=== PATIENT | male | born 1955 ===

== ENCOUNTER 2024-09-28 17:32 | Emergency (ER) | payer MEDICARE ==
[~2024-09-28] VITALS: Ht 177.8 cm; Wt 63.5 kg
[2024-09-28 18:51] LABS: BASOPHILS ABSOLUTE AUTO 0.05 K/mm3 (0.00-0.23); BASOPHILS PERCENT AUTO 1 % (0-2); EOSINOPHILS ABSOLUTE AUTO 0.19 K/mm3 (0.00-0.68); EOSINOPHILS PERCENT AUTO 2 % (0-6); Hematocrit 40.2 % (37.0-53.0); Hemoglobin 13.8 g/dL (13.5-17.5); IMMATURE GRAN ABSOLUTE AUTO 0.04 K/mm3 (0.00-0.10); IMMATURE GRAN PERCENT AUTO 1 % (0-1); LYMPHOCYTES ABSOLUTE AUTO 1.17 K/mm3 (0.84-5.20); LYMPHOCYTES PERCENT AUTO 15 % (21-46); MONOCYTES ABSOLUTE AUTO 0.59 K/mm3 (0.16-1.47); MONOCYTES PERCENT AUTO 7 % (4-13); Mean Corpuscular HGB 27.3 pg (26.0-34.0); Mean Corpuscular HGB Conc 34.3 g/dL (31.5-36.5); Mean Corpuscular Volume 80 fL (80-100); Mean Platelet Volume 9.9 fL (9.1-12.4); NEUTROPHILS ABSOLUTE AUTO 5.94 K/mm3 (1.96-9.15); NEUTROPHILS PERCENT AUTO 74 % (41-73); Platelet Count 82 K/mm3 (150-400); RDW Coefficient Variation 15.6 % (11.7-14.2); RDW Standard Deviation 44.7 fL (35.1-46.3); Red Blood Cell Count 5.05 M/mm3 (4.30-5.90); White Blood Cell Count 7.98 K/mm3 (4.00-11.30)
[2024-09-28 19:18] LABS: Albumin/Globulin Ratio 0.7 (0.8-1.8); Bilirubin, Total 1.6 mg/dL (0.1-1.0); Bun/Creatinine Ratio 14.1 (12.0-20.0); Calcium, Blood 9.1 mg/dL (8.5-10.1); Creatinine, Blood 0.92 mg/dL (0.60-1.20); Globulin, Blood 4.2 g/dL (2.2-4.0); Potassium, Blood 3.3 mmol/L (3.5-5.5); Total Protein, Blood 7.2 g/dL (6.4-8.2)
[2024-09-28] MEDS ORDERED: SILDENAFIL CITR20 M1 PO (21:43)
[2024-09-28] MEDS ORDERED: OXAYDO5 M1 PO ×2 (21:43→21:45)
[2024-09-28] MEDS ORDERED: OxyCODONE HCL 5 MG TAB PO ONE (21:50)
[2024-09-28] MEDS ORDERED: BASAGLAR K100 UNIT/3 SC (21:55)
[2024-09-28] MEDS ORDERED: PANTOPRAZOLE SO40 M2 PO (21:55)
[2024-09-28] MEDS ORDERED: HUMALOG KW200 UNIT/2 SQ (21:55)
[2024-09-28] MEDS ORDERED: OXYC5 PO (21:55)
[2024-09-28] MEDS ORDERED: Cyclobenzaprine5 MG (21:55)
[2024-09-28] MEDS ORDERED: Methocarbamol750 MG PO (21:56)
[2024-09-28] MEDS ORDERED: EFFEXOR XR37.5 MG PO (21:56)
== END 2024-09-28 22:10 | disposition home or self-care (01) ==
LOC: ER 17:32
PROVIDERS: Physician Assistant
DX: R07.0 Pain in throat (principal); Z85.01 Personal history of malignant neoplasm of esophagus; Z76.0 Encounter for issue of repeat prescription
CPT/HCPCS: 80053; 82947; 85025; 99283; A9270

== ENCOUNTER → 2024-10-26 | Outpatient (CLI) | payer MEDICARE ==
[~2024-10-26] MED LIST: BASAGLAR K100 UNIT/3 SC; Cyclobenzaprine5 MG; EFFEXOR XR37.5 MG PO; HUMALOG KW200 UNIT/2 SQ; Methocarbamol750 MG PO; OXAYDO5 M1 PO; OXYC5 PO; PANTOPRAZOLE SO40 M2 PO; SILDENAFIL CITR20 M1 PO
[2024-10-26 13:19] LABS: BASOPHILS ABSOLUTE AUTO 0.05 K/mm3 (0.00-0.23); BASOPHILS PERCENT AUTO 1 % (0-2); EOSINOPHILS ABSOLUTE AUTO 0.07 K/mm3 (0.00-0.68); EOSINOPHILS PERCENT AUTO 1 % (0-6); Hematocrit 39.7 % (37.0-53.0); Hemoglobin 13.6 g/dL (13.5-17.5); IMMATURE GRAN ABSOLUTE AUTO 0.05 K/mm3 (0.00-0.10); IMMATURE GRAN PERCENT AUTO 1 % (0-1); LYMPHOCYTES ABSOLUTE AUTO 0.53 K/mm3 (0.84-5.20); LYMPHOCYTES PERCENT AUTO 6 % (21-46); MONOCYTES ABSOLUTE AUTO 0.39 K/mm3 (0.16-1.47); MONOCYTES PERCENT AUTO 5 % (4-13); Mean Corpuscular HGB 26.6 pg (26.0-34.0); Mean Corpuscular HGB Conc 34.3 g/dL (31.5-36.5); Mean Corpuscular Volume 78 fL (80-100); Mean Platelet Volume 10.6 fL (9.1-12.4); NEUTROPHILS ABSOLUTE AUTO 7.13 K/mm3 (1.96-9.15); NEUTROPHILS PERCENT AUTO 87 % (41-73); RDW Coefficient Variation 15.5 % (11.7-14.2); RDW Standard Deviation 43.1 fL (35.1-46.3); Red Blood Cell Count 5.11 M/mm3 (4.30-5.90); White Blood Cell Count 8.22 K/mm3 (4.00-11.30)
[2024-10-26 13:22] LABS: Platelet Count 75 K/mm3 (150-400)
[2024-10-26 13:33] LABS: Albumin, Blood 3.2 g/dL (3.4-5.0); Albumin/Globulin Ratio 0.7 (0.8-1.8); Bilirubin, Total 1.8 mg/dL (0.1-1.0); Bun/Creatinine Ratio 18.9 (12.0-20.0); Calcium, Blood 9.6 mg/dL (8.5-10.1); Creatinine, Blood 1.22 mg/dL (0.60-1.20); Globulin, Blood 4.6 g/dL (2.2-4.0); Potassium, Blood 4.5 mmol/L (3.5-5.5); Total Protein, Blood 7.8 g/dL (6.4-8.2)
== END ==
LOC: LAB SHORT 13:08 → LAB 13:08
PROVIDERS: Family Medicine
DX: R00.0 Tachycardia, unspecified (principal)
CPT/HCPCS: 80053; 85025; 85379

== ENCOUNTER 2025-05-05 18:05 | Observation (INO) | payer MEDICARE ==
[~2025-05-05] VITALS: Ht 175.3 cm; Wt 68.0 kg
[~2025-05-05 18:05] MED LIST changes: -Cyclobenzaprine5 MG; +Cyclobenzaprine5 MG PO
[2025-05-05 19:12] LABS: BASOPHILS ABSOLUTE AUTO 0.04 K/mm3 (0.00-0.23); BASOPHILS PERCENT AUTO 1 % (0-2); EOSINOPHILS ABSOLUTE AUTO 0.10 K/mm3 (0.00-0.68); EOSINOPHILS PERCENT AUTO 2 % (0-6); Hematocrit 36.6 % (37.0-53.0); Hemoglobin 11.8 g/dL (13.5-17.5); IMMATURE GRAN ABSOLUTE AUTO 0.02 K/mm3 (0.00-0.10); IMMATURE GRAN PERCENT AUTO 0 % (0-1); LYMPHOCYTES ABSOLUTE AUTO 0.81 K/mm3 (0.84-5.20); LYMPHOCYTES PERCENT AUTO 17 % (21-46); MONOCYTES ABSOLUTE AUTO 0.30 K/mm3 (0.16-1.47); MONOCYTES PERCENT AUTO 6 % (4-13); Mean Corpuscular HGB Conc 32.2 g/dL (31.5-36.5); Mean Corpuscular Volume 76 fL (80-100); NEUTROPHILS ABSOLUTE AUTO 3.55 K/mm3 (1.96-9.15); NEUTROPHILS PERCENT AUTO 74 % (41-73); NRBC ABSOLUTE 0.00 K/mm3 (0.00-0.02); NRBC Auto 0.0 /100 WBC (0.0-0.2); Platelet Count 60 K/mm3 (150-400); RDW Coefficient Variation 16.9 % (11.7-14.2); RDW Standard Deviation 46.4 fL (35.1-46.3)
[2025-05-05 19:36] LABS: Alanine Aminotransfer (ALT/SGP 25.0 U/L (12-78); Albumin, Blood 3.1 g/dL (3.4-5.0); Albumin/Globulin Ratio 0.8 (0.8-1.8); Anion Gap 7.0 mmol/L (3-11); Aspartate Aminotrans (AST/SGOT 19.0 U/L (12-37); Bilirubin, Total 1.7 mg/dL (0.1-1.0); Blood Urea Nitrogen 16.0 mg/dL (8-24); CO2, Blood 25.0 mmol/L (21-32); Calcium, Blood 9.1 mg/dL (8.5-10.1); Chloride, Blood 105.0 mmol/L (98-108); Creatinine, Blood 1.01 mg/dL (0.60-1.20); Globulin, Blood 3.8 g/dL (2.2-4.0); Glucose, Blood 237.0 mg/dL (70-99); Potassium, Blood 4.2 mmol/L (3.5-5.5); Sodium, Blood 133.0 mmol/L (136-145); Total Protein, Blood 6.9 g/dL (6.4-8.2)
[2025-05-05] MEDS ORDERED: Morphine Sulfate 4 MG/1 ML Injection IV ONE ×2 (21:40→23:15)
[2025-05-05] MEDS ORDERED: NS 500 ML IV SCH (21:45)
[2025-05-06] MEDS ORDERED: Ondansetron HCl 2 MG / ML 2ML Vial IV PRN (01:50)
[2025-05-06] MEDS ORDERED: Naloxone HCl 0.4MG / ML 1ML Vial IV PRN (01:50)
[2025-05-06] MEDS ORDERED: Morphine Sulfate 4 MG/1 ML Injection IV PRN (01:55)
[2025-05-06] MEDS ORDERED: FLU VACC TS2025-26(6MOS UP)/PF 45 MCG/0.5 ML SYRINGE IM SCH (01:55)
[2025-05-06] MEDS ORDERED: NS 1,000 ML IV SCH (02:00)
[2025-05-06] MEDS ORDERED: Morphine Sulfate 4 MG/1 ML Injection IV ONE (02:05)
[2025-05-06 03:25] VITALS: BP 152/84
[2025-05-06] MEDS ORDERED: Prednisone10 MG PO (03:41)
[2025-05-06] MEDS ORDERED: TACR1 PO (03:43)
[2025-05-06 05:18] LABS: BASOPHILS ABSOLUTE AUTO 0.02 K/mm3 (0.00-0.23); BASOPHILS PERCENT AUTO 1 % (0-2); EOSINOPHILS ABSOLUTE AUTO 0.08 K/mm3 (0.00-0.68); EOSINOPHILS PERCENT AUTO 3 % (0-6); Hematocrit 31.6 % (37.0-53.0); Hemoglobin 10.2 g/dL (13.5-17.5); IMMATURE GRAN ABSOLUTE AUTO 0.02 K/mm3 (0.00-0.10); IMMATURE GRAN PERCENT AUTO 1 % (0-1); LYMPHOCYTES ABSOLUTE AUTO 0.57 K/mm3 (0.84-5.20); LYMPHOCYTES PERCENT AUTO 22 % (21-46); MONOCYTES ABSOLUTE AUTO 0.18 K/mm3 (0.16-1.47); MONOCYTES PERCENT AUTO 7 % (4-13); Mean Corpuscular HGB Conc 32.3 g/dL (31.5-36.5); Mean Corpuscular Volume 78 fL (80-100); NEUTROPHILS ABSOLUTE AUTO 1.74 K/mm3 (1.96-9.15); NEUTROPHILS PERCENT AUTO 67 % (41-73); NRBC ABSOLUTE 0.00 K/mm3 (0.00-0.02); NRBC Auto 0.0 /100 WBC (0.0-0.2); RDW Coefficient Variation 16.9 % (11.7-14.2); RDW Standard Deviation 47.6 fL (35.1-46.3)
[2025-05-06 05:27] LABS: Prothrombin Time Results 14.8 Sec (9.7-11.5)
[2025-05-06 05:37] LABS: Platelet Count 46 K/mm3 (150-400)
[2025-05-06] MEDS ORDERED: Insulin Regular 100 UNIT/ML 10ML Vial SC SCH (06:00)
[2025-05-06 06:02] LABS: Alanine Aminotransfer (ALT/SGP 21.0 U/L (12-78); Albumin, Blood 2.7 g/dL (3.4-5.0); Albumin/Globulin Ratio 0.8 (0.8-1.8); Anion Gap 8.0 mmol/L (3-11); Aspartate Aminotrans (AST/SGOT 14.0 U/L (12-37); Bilirubin, Total 1.1 mg/dL (0.1-1.0); Blood Urea Nitrogen 12.0 mg/dL (8-24); CO2, Blood 26.0 mmol/L (21-32); Calcium, Blood 8.4 mg/dL (8.5-10.1); Chloride, Blood 105.0 mmol/L (98-108); Creatinine, Blood 0.85 mg/dL (0.60-1.20); Globulin, Blood 3.5 g/dL (2.2-4.0); Glucose, Blood 241.0 mg/dL (70-99); Potassium, Blood 3.9 mmol/L (3.5-5.5); Sodium, Blood 135.0 mmol/L (136-145); Total Protein, Blood 6.2 g/dL (6.4-8.2)
[2025-05-06 06:04] LABS: Ferritin, Serum 22.0 ng/mL (26-388); Total Iron Binding Capacity 282.0 ug/dL (250-450)
--- NOTE | 2025-05-06 06:45 | NUR ---
SHIFT SUMMARY; AFTER ADMIT, PATIENT MEDICATED FOR PAIN X 1. VOIDING AND IV FLUIDS STARTED NS/75/HR. NPO FOR PROCEDURE. CRITCAL LOW PLATES CALLED TO HOSPITALIST.
[2025-05-06 07:22] VITALS: BP 152/76
[2025-05-06] MEDS ORDERED: Iron Dextran 50 MG / ML 2ML Vial IV ONE (10:00)
[2025-05-06] MEDS ORDERED: Iron Dextran 975 MG in NS 250 ML IV ONE (11:00)
[2025-05-06] MEDS ORDERED: Mag Sulfate 1 GM/D5% 100ML 100 ML IV STA (11:20)
[2025-05-06] MEDS ORDERED: OXYC10ER PO (14:27)
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
--- NOTE | 2025-05-06 16:07 | NUR ---
DISCHARGE NOTE- PT WAS GIVEN VERBAL AND WRITTEN DISCHARGE ORDERS AND ACKNOWLEDGED UNDERSTANDING OF THEM. IV DC'D PRIOR TO DISCHARGE. PT WAS PROVIDED HARD COPY SCRIPT FOR PAIN MEDS AT THE TIME OF DISCHARGE. CALLED DR GORMAN THE PT DOES NOT RETURN HOME FOR 12 DAYS AND HE HAS NO MORE OF HIS FLEXERIL. RECIEVED A VERBAL ORDER FOR 30 DAY SUPPLY OF FLEXERIL TO BE CALLED IN TO THE PT PHARMACY OF CHOICE. PT REQUESTED [facility]. SCRIPT CALLED IN PER MD ORDER. 90 TABS OF FLEXERIL 5-10 MG PO TID. PT REFUSED ESCORT AND WALKED OUT WITH HIS BROTHER. NO S&S OF DISTRESS NOTED AT THE TIME OF DISCHARGE.
[2025-05-08 06:49] LABS: TACROLIMUS BY HPLC-MS/MS <2.0 ng/mL
== END 2025-05-06 15:30 | disposition home or self-care (01) ==
LOC: ER 18:05 → MEDS 18:06
PROVIDERS: Student in an Organized Health Care Education/Training Program; ADMIT Student in an Organized Health Care Education/Training Program
DX: R13.10 Dysphagia, unspecified (principal); G89.3 Neoplasm related pain (acute) (chronic); C15.9 Malignant neoplasm of esophagus, unspecified; E11.9 Type 2 diabetes mellitus without complications; K21.9 Gastro-esophageal reflux disease without esophagitis; J84.9 Interstitial pulmonary disease, unspecified; E86.0 Dehydration; E46 Unspecified protein-calorie malnutrition; J96.11 Chronic respiratory failure with hypoxia; D69.6 Thrombocytopenia, unspecified; D50.9 Iron deficiency anemia, unspecified; Z68.22 Body mass index [BMI] 22.0-22.9, adult; Z88.8 Allergy status to other drugs, medicaments and biological substances; Z79.899 Other long term (current) drug therapy; Z79.4 Long term (current) use of insulin; Z94.4 Liver transplant status; Z87.891 Personal history of nicotine dependence; Z99.81 Dependence on supplemental oxygen
CPT/HCPCS: 36415; 71260; 80053; 80197; 82728; 82947; 83540; 83550; 83735; 85025; 85610; 92610; 94762; 96365; 96366; 96374-59; 96375-59; 96376; 99285-25; A9270; G0378; J1750; J1815; J2270; J7030; J7050; Q9967